=== PATIENT | female | born 1975 | race Caucasian/White ===

== ENCOUNTER 2020-06-11 06:00 | Day surgery (SDC) | payer OTHER ==
[~2020-06-11] VITALS: Ht 165.1 cm; Wt 86.4 kg
[~2020-06-11 06:00] MED LIST: MULTI VITAMIN1 EACH PO
--- NOTE | 2020-06-11 06:16 | NUR ---
[facility] RAPID COVID TEST DONE PER ORDER. COVID TEST COLLECTED FROM BOTH NARES W/O ISSUE. PT TOLERATED WELL.
--- NOTE | 2020-06-11 10:47 | NUR ---
LE 1000: AMNA, PATIENT'S UPDATED ON SURGICAL SCHEDULE. HE VERBALIZES UNDERSTANDING. 1045: AMNA, PATIENT'S INFORMED THE SURGERY JUST ENDED AND DR BECERRA WILL BE IN TO SPEAK WITH HIM SOON.
--- NOTE | 2020-06-11 10:54 | NUR ---
06/11/20 1054 Tova Ag 1050- PT TO PACU IN SUPINE POSITION. EYES CLOSED. DOES NOT RESPOND TO VERBAL OR TACTILE STIMULI. BREATHING EASY AND UNLABORED.SPO2 >95% ON 6 L O2 VIA SIMPLE MASK. SCANT BLEEDING ON BRADY PAD. 3 LAP SITES CDI.
--- NOTE | 2020-06-11 11:55 | NUR ---
NAPOLES BALLOON DEFLATED FOR 9 ML FLUID. NAPOLES IS DC WNL. 250 ML BRIGHT, YELLOW URINE IS NOTED TO NAPOLES OVERNIGHT BAG. PATIENT IS UP WITH HER AND MYSELF ASSIST TO THE BATHROOM. SHE IS UNABLE TO VOID. SHE AMBULATES BACK TO HER ROOM. SCDS ARE IN PLACE. CALL LIGHT IS WITHIN REACH. ICED WATER AND JELLO IS GIVEN. HER SPOUSE REMAINS AT HER BEDSIDE.
[2020-06-11] MEDS ORDERED: MOTRIN IB200 MG PO (12:14)
[2020-06-11] MEDS ORDERED: ONDANSETRON ODT8 MG PO (12:14)
[2020-06-11] MEDS ORDERED: PERCOCET 5-3251 EACH PO (12:14)
--- NOTE | 2020-06-11 12:27 | NUR ---
MORE ICED WATER GIVEN. TOM BAKER ON WARM.
--- NOTE | 2020-06-11 13:13 | NUR ---
1310 AMB TO BR VOIDS 150MLS BRIGHT YELLOW URINE. RETURNED TO BED SCDS ON.
--- NOTE | 2020-06-11 13:28 | NUR ---
PATIENT IS UP TO THE BATHROOM INDEPENDENTLY. SHE AMBULATES WELL.
--- NOTE | 2020-06-11 15:29 | NUR ---
PT TAKEN TO OR, CONNECTED WITH PT'S AMNA WAITING IN RM. HE IS ALITTLE ANXIOUS, GAVE COMFORT AND ENCOURAGEMENT. ANSWERED ALL HIS QUESTIONS.
--- NOTE | 2020-06-13 08:55 | OR ---
[facility] [address], [place] [address] Signed DATE OF OPERATION: 06/11/2020 SURGEON: Seble Borrero MD WILDLIFE OFFICER: Fareed John M.D. PREOPERATIVE DIAGNOSIS: Menorrhagia, unresponsive to medication. POSTOPERATIVE DIAGNOSES: 1. Menorrhagia, unresponsive to medication. 2. Severe pelvic adhesions. 3. Severe endometriosis. PROCEDURES: Total laparoscopic hysterectomy with left salpingo-oophorectomy, right salpingectomy, lysis of adhesions, and cystoscopy for procedure. ANESTHESIA: General ET. ESTIMATED BLOOD LOSS: 150 mL. DRAINS: Weaver catheter. INDICATIONS AND FINDINGS: The patient is a 44-year-old female, 4, para 4, who has been having worsening menorrhagia over the last few years. She has been tried with multiple medications including TXA, NSAIDs, OCPs, and the Mirena without improvement in her bleeding. She now desires definitive treatment. At the time of surgery, exam under anesthesia revealed a top-normal sized uterus. At the time of laparoscopy, she had evidence of severe endometriosis. There were adhesions of the sigmoid epiploica to the posterior aspect of the uterus. The tubes were both quite dilated. The right ovary was adherent to the posterior aspect of the uterus, though this could be brought out and was otherwise normal. The patient's left ovary was severely adhesed to the left posterior broad ligament as well as the posterior uterus and had evidence of an endometrioma. Electronically Signed By: SEBLE BORRERO MD 06/13/20 0855 PATIENT NAME: DANIELE JASMINE OPERATIVE REPORT DATE OF : 71 REPORT #: [id number] PHYSICIAN: SEBLE BORRERO MD PCP: NO PRIMARY CARE PHYSICIAN REPORT IS CONFIDENTIAL AND NOT TO BE RELEASED WITHOUT AUTHORIZATION [facility] [address], [place] [address] Signed DESCRIPTION OF PROCEDURE: The patient was prepped and draped in the dorsal lithotomy position. A weighted speculum was placed and the anterior lip of the cervix was visualized and grasped with a single-tooth tenaculum. The cavity sounded to 10 cm. The endocervical canal was then dilated and a VCare cannula placed and the balloon inflated at the fundus. Following this, the tenaculum and speculum removed and the cup was fitted over the cervix. The locking cap was fitted into place. Attention was then directed above. The infraumbilical area was injected with 0.5% Marcaine plain. Incision made with a knife, and each layer serially elevated and incised until the fascia was opened and identified. Stay sutures of 0-Vicryl were then placed. The peritoneum was opened bluntly and the Jay cannula was placed and balloon inflated. Placement of the scope confirmed proper positioning. CO2 was then introduced into the abdomen under low pressures. Following this, the adhesions were noted and a secondary port was placed on her left. This was slightly below the level of the umbilicus and quite lateral. The abdominal wall could not be transilluminated secondary to depth of the wall. The area was injected with the Marcaine, incised with a knife and a 5 mm port placed under direct vision. Following this, another port was placed on the right in a similar manner. This port was the Veress needle followed by the expanding port. Following this, the pelvis was re-evaluated and the adhesions of the epiploica of the sigmoid were taken down using the LigaSure Maryland device. The cul-de-sac after this did appear clear. Following this, the patient's right tube was removed. The mesosalpinx was serially coagulated and divided and the specimen divided at the cornu. The specimen was removed. This same procedure was done to excise the left tube. The patient's left round ligament was serially coagulated and divided and the anterior leaf of the peritoneum was incised slightly. The utero-ovarian ligament on the patient's left was then taken down very close to the uterus as it was extremely adherent in that area. This was serially coagulated and divided at least shelter through that ligament. Following this, the patient's right round ligament was serially coagulated and divided. The right utero-ovarian pedicle was serially coagulated and divided. The peritoneum was then taken down anteriorly, allowing for partial bladder flap. The peritoneum was taken down posteriorly as well, allowing for isolation of the uterine vessels. These were then serially coagulated and divided. Attention was redirected to the patient's left side and the remaining utero-ovarian pedicle was coagulated and divided. The peritoneum was taken down more anteriorly allowing for completion of the bladder flap and the peritoneum was taken down posteriorly as well. The uterine vessels were then skeletonized and coagulated multiple times and then divided. Further dissection was done both posteriorly and anteriorly until the cup could be identified. Following this, the Sonicision device was used to separate the specimen from the vaginal cuff. This was begun posteriorly and wrapped around anteriorly on the left and began again posteriorly and wrapped around anteriorly on the right. Following this, the specimen was retrieved vaginally intact. The vaginal canal was then packed with a glove Electronically Signed By: SEBLE BORRERO MD 06/13/20 0855 PATIENT NAME: DANIELE JASMINE OPERATIVE REPORT DATE OF : 71 REPORT #: [id number] PHYSICIAN: SEBLE BORRERO MD PCP: NO PRIMARY CARE PHYSICIAN REPORT IS CONFIDENTIAL AND NOT TO BE RELEASED WITHOUT AUTHORIZATION [facility] [address], [place] [address] Signed with a wet lap. This allowed for reaccumulation of the pneumoperitoneum. Following this, the cuff was evaluated and there appeared to be some remaining cervix from approximately 3 to 6 o'clock. This was excised separately using the Maryland device. The specimen was placed in the vagina for retrieval later. The cuff itself appeared to be hemostatic. The endo stitch was then used to close the vaginal cuff beginning at the patient's right uterosacral ligament, taking care to incorporate the vaginal mucosa both posteriorly and anteriorly and running across to the patient's left uterosacral ligament and then back to the center. Following this, attention was redirected to the patient's left ovary. It remained still very adherent to the pelvic sidewall. It was elevated and at that point, an endometrioma ruptured. It was felt that this ovary should probably be removed given the extent of disease. The patient's infundibulopelvic ligament on the left was identified and coagulated multiple times and then divided. This was done above the pelvic brim. An Endoloop of 0 PDS was then placed to further assure hemostasis. Another Endoloop was placed slightly wider than the first as the first seemed somewhat shallow. The pelvic sidewall was then opened and hydrodissection used to allow identification of the ureter. The ovary was then from the peritoneum taking care to keep the ureter safe. This area was then mostly raw with some small bleeding points. Monopolar cautery was used judiciously to allow hemostasis. Because of the closeness of the ureter and the extent of the raw area, it was felt Tisseel would be a better option to assure hemostasis. The Tisseal was sprayed over the patient's left pelvic sidewall and across the cuff. Attention was then directed to the cystoscopy. She had received IV Fluorescein. The Weaver catheter was removed. The 30 degree scope was placed. The Weaver catheter was removed. The 30 degree scope was placed. There was Fluorescein already present in the bladder. There was no evidence of any bladder injury. Both ureteral orifices were seen to have free egress of urine. The bladder was then drained and the Weaver catheter replaced. The vag pack and cervical specimen were removed at this time from the vagina. Attention was redirected above. There did not appear to be any significant bleeding during this time with the previous Tisseel, but another layer of Tisseel was placed over the entire cuff and on the left side. There was no evidence of any fluorescein in the abdomen. The instruments removed from the abdomen after allowing as much CO2 as possible to escape. The fascial incision was re-identified and closed with a running suture of 0-Vicryl. The skin incisions were closed with subcuticular sutures of 3-0 Vicryl Rapide. All sponge and needle counts were correct. She tolerated the procedure well and was taken to the recovery room in good condition. Electronically Signed By: SEBLE BORRERO MD 06/13/20 0855 PATIENT NAME: DANIELE JASMINE OPERATIVE REPORT DATE OF : 71 REPORT #: [id number] PHYSICIAN: SEBLE BORRERO MD PCP: NO PRIMARY CARE PHYSICIAN REPORT IS CONFIDENTIAL AND NOT TO BE RELEASED WITHOUT AUTHORIZATION [address] [address] Signed Seble Borrero MD PJW/MODL /[id number] cc: Fareed John MD Copies: FAREED JOHN MD ~ Electronically Signed By: SEBLE BORRERO MD 06/13/20 0855 PATIENT NAME: DANIELE JASMINE LINDSAY OPERATIVE REPORT DATE OF : 71 REPORT #: [id number] PHYSICIAN: SEBLE BORRERO MD PCP: NO PRIMARY CARE PHYSICIAN REPORT IS CONFIDENTIAL AND NOT TO BE RELEASED WITHOUT AUTHORIZATION
--- NOTE | 2020-06-13 14:52 | PATH ---
[facility] [address], [place] [address] Signed SPECIMEN(S): A CERVIX, UTERUS, TUBES LEFT OVARY SPECIMEN SOURCE: A. CERVIX, UTERUS, TUBES LEFT OVARY CLINICAL HISTORY: Menorrhagia, uterine leiomyoma, fibroid. FINAL PATHOLOGIC DIAGNOSIS: Cervix, uterus, tubes and left ovary, hysterectomy, bilateral salpingectomy and left oophorectomy: - Cervix: - Benign squamous epithelium and endocervix. - Negative for dysplasia and malignancy. - Endomyometrium: - Leiomyoma (1.9 cm in greatest dimension). - Benign secretory endometrium. - Negative for hyperplasia and atypia. - Bilateral fallopian tubes: - Benign fimbria and fallopian tubes with paratubal cysts. - Left ovary: - Ovarian parenchyma with hemorrhagic cysts and cystic follicles. DDF:cml:C2NR MICROSCOPIC EXAMINATION: Histologic sections of all submitted blocks are examined by light microscopy. These findings, together with the gross examination, support the pathologic diagnosis. GROSS DESCRIPTION: The specimen, labeled "BL, A," and designated on the requisition "cervix, uterus, bilat. Tubes plus left ovary," is received in formalin and consists of a uterus with a partially attached cervix, a detached portion of cervix, a detached fimbriated fallopian tube segment, a detached tubal segment without fimbria, previously incised possible ovary, and a detached piece of adipose tissue. The uterus with cervix weighs 249 g and is 11.7 x 9.2 x 6.2 cm. The cervical barrel of the attached segment of cervix is inked blue is inked blue. The estimated resection margin of the previously removed cervical segment is inked green. Upon reconstruction, the roth-white, smooth to finely wrinkled ectocervical tissue measures 5.2 x 4.5 cm. The PATIENT NAME: DANIELE JASMINE PATHOLOGY DATE OF : 71 REPORT #: [id number] PHYSICIAN: CRIS PATHOLOGY PCP: NO PRIMARY CARE PHYSICIAN REPORT IS CONFIDENTIAL AND NOT TO BE RELEASED WITHOUT AUTHORIZATION [facility] [address], [place] [address] Signed external os is oval, patent, and 1.8 cm in diameter. The internal os is patent and the cervical stroma is grossly unremarkable. The endometrial cavity is distorted and measures 5.2 x 1.5 cm. The dark red endometrium is up to 0.5 cm thick and without a discrete mass/lesion. The roth, rubbery myometrium has a slight trabecular appearance but is without a discrete mass/lesion. The lower uterine segment contains one well-circumscribed, roth-white, 1.9 cm in greatest dimension nodule that has a whorled, mendoza-white cut surface. The nodule does not grossly appear to invade through the myometrium to the cervical barrel. The detached fimbriated fallopian tube is roth-purple, 6.5 cm long, markedly congested, 1.2 cm in diameter, inked red and has multiple clear fluid-filled, smooth inner walled, paratubal cystic structures from 0.1 up to 0.2 cm in greatest dimension. Additionally the external surface of the tube is ragged and has multiple delicate adhesions. An additional discrete mass/lesion is grossly identified. The detached tubal segment is without grossly identifiable fimbria, ragged, partially fragmented, 4.7 cm long, 0.7 cm in diameter, inked yellow, and has an attached 1.5 x 1.2 x 1.0 cm nodule. The cut surface of the nodule is roth, homogenous with a centrally located, 0.6 x 0.4 x 0.4 cm cavity containing dark red liquid. The tube has a patent lumen and is otherwise grossly. The previously incised, possible ovary is roth-white, ragged,, 4.2 x 3.1 x 2.5 cm with attached connective tissue up to 2.5 cm wide. Where identifiable, the possible ovarian capsule is roth to brown and bumpy. The pieces are cross-sectioned to reveal multiple smooth inner walled, clear fluid-filled cystic structures from 0.2 up to 1.1 cm in greatest dimension. Additionally the cut surface contains a previously incised, 1.5 cm in greatest dimension hemorrhagic cavity containing a copious amount of clotted blood. The cavity is smooth inner kelly. The remaining cut surface grossly appears to be grossly unremarkable ovarian stroma and an additional discrete mass/lesion is not identified. The detached adipose tissue piece is irregularly-shaped, 2.5 x 1.6 x 0.5 cm, has focal roth-white adhesions, and is inked orange. The pieces are cross-sectioned to reveal yellow, homogenous grossly unremarkable tissue. Director Independent sections are submitted as follows: PATIENT NAME: DANIELE JASMINE PATHOLOGY DATE OF : 71 REPORT #: [id number] PHYSICIAN: CRIS PORTER PCP: NO PRIMARY CARE PHYSICIAN REPORT IS CONFIDENTIAL AND NOT TO BE RELEASED WITHOUT AUTHORIZATION [address] [address] Signed A1-A3 cervix including detached portion of cervix A4-A5 uterine wall A6-A7 lower uterine segment nodule A8 detached fimbriated fallopian tube A9 detached tubal segment A10-A12 possible ovary including cystic structures (A11 contains a section of the adipose tissue piece AI (under the direct supervision of a pathologist) The Gross Description was prepared using a voice recognition system. The report was reviewed for accuracy; however, sound-alike word errors, addition and/or deletions may occur. If there is any question about this report, please contact Client Services. PERFORMING LABORATORY: The technical component [place] [address] (Tacker Off: Lindsey Mukherjee MD; CLIA# [id number]). Professional interpretation was [place] [place] [address] (CLIA# [id number]). Diagnostician: Rivera Lee DO Pathologist Electronically Signed 06/13/2020 Copies: ~ PATIENT NAME: DANIELE JASMINE PATHOLOGY DATE OF : 71 REPORT #: [id number] PHYSICIAN: CRIS PORTER PCP: NO PRIMARY CARE PHYSICIAN REPORT IS CONFIDENTIAL AND NOT TO BE RELEASED WITHOUT AUTHORIZATION
== END 2020-06-11 13:45 | disposition home or self-care (01) ==
LOC: DS 06:00
PROVIDERS: ATTEND Obstetrics & Gynecology
PROC: 0UT94ZZ Resection of Uterus, Percutaneous Endoscopic Approach (ICD-10-PCS; principal; 2020-06-11 06:45)
PROC: 0UT14ZZ Resection of Left Ovary, Percutaneous Endoscopic Approach (ICD-10-PCS; 2020-06-11 06:45)
PROC: 0UT74ZZ Resection of Bilateral Fallopian Tubes, Percutaneous Endoscopic Approach (ICD-10-PCS; 2020-06-11 06:45)
DX: D25.9 Leiomyoma of uterus, unspecified (principal); N83.8 Other noninflammatory disorders of ovary, fallopian tube and broad ligament; N83.202 Unspecified ovarian cyst, left side; N70.11 Chronic salpingitis; N73.6 Female pelvic peritoneal adhesions (postinfective); K21.9 Gastro-esophageal reflux disease without esophagitis; E66.9 Obesity, unspecified; Z79.899 Other long term (current) drug therapy; Z68.31 Body mass index [BMI] 31.0-31.9, adult; Z20.828 Contact with and (suspected) exposure to other viral communicable diseases
CPT/HCPCS: 00840; C9803; J0330; J0694; J1100; J1644; J1885; J2001; J2250; J2270; J2405; J2704; J2765; J2795; J3475; J7121; U0003